=== PATIENT | female | born 1985 | race Caucasian/White ===

== ENCOUNTER 2020-05-14 08:34 | Outpatient (CLI) | payer BC, MEDICAID ==
[~2020-05-14] VITALS: Ht 157.5 cm; Wt 109.5 kg
[~2020-05-14 08:34] MED LIST: AMOXICILLIN/CLA1 TA1 PO; DEPO-PROVER150 MG/M1 IM; DOXYCYCLINE 10100 MG PO; IMPLANON68 MG ID; LORTAB 5/500 501 TAB PO; NO HOME MEDICATIONS; PRENATAL1 TA1 PO; TESSALON PERLE100 MG PO; TYLENOL #2 3001 TAB PO; TYLENOL 500MG500 MG PO; VENTOLIN0.09 MG IH; ZOLOFT 50MG50 MG PO
--- NOTE | 2020-05-14 08:42 | NUR ---
0842-G2L1 21.[address] Good' to unit with complaints of contractions off and on since 0400 every 7-10 min. Denies LOF or VB. Reports good movement. Assisted into gown and on to EFM. FHR difficult to trace due to habitus and gestation. RN frequently adjusting EFM. Abdomen palpates soft. Assessment complete. 0910-IV to right wrist per orders,LR infusing, see EMAR> 0948-Dr. Good updated, see MD notification. Orders to send UA. 1000-Dr. Good on unit in to patient room. Awaiting UA results.
[2020-05-14 09:31] VITALS: BP 104/51; PULSE 76; TEMP 98.6
[2020-05-14 09:49] VITALS: BP 100/54; PULSE 79
[2020-05-14 10:09] LABS: COLLECTION METHOD CLEAN CATCH
[2020-05-14 10:21] LABS: PH 6 (5-8); URINE APPEARANCE Cloudy; URINE BACTERIA Rare /hpf; URINE BILIRUBIN Negative (NEGATIVE); URINE BLOOD Negative (NEGATIVE); URINE COLOR Yellow; URINE GLUCOSE Negative (NEGATIVE); URINE KETONE Negative (NEGATIVE); URINE LEUKOCYTE ESTERASE 3+ (NEGATIVE); URINE NITRATE Negative (NEGATIVE); URINE PROTEIN(semi-quant) Negative (NEGATIVE); URINE RBC None Seen /hpf; URINE UROBILINOGEN Negative (NEGATIVE)
--- NOTE | 2020-05-14 10:30 | NUR ---
1030-Reviewed UA results with MD on unit. Orders to call in Macrobid 100mg BID x7 days PO to [facility] and discharge patient. 1045-Reviewed dishcarge instructions and need to orange picker newly prescribed medication. Denies questions. 1050-Ambulatory off unit.
== END 2020-05-14 10:50 | disposition home or self-care (01) ==
LOC: LDRO 08:34
PROVIDERS: Obstetrics & Gynecology
DX: O62.9 Abnormality of forces of labor, unspecified (principal); Z3A.21 21 weeks gestation of pregnancy; F17.210 Nicotine dependence, cigarettes, uncomplicated
CPT/HCPCS: J7120

== ENCOUNTER 2020-09-18 06:08 | Inpatient (IN) | payer MEDICAID ==
[2020-09-18] VITALS (67 sets, daily range): BP systolic 96–154; BP diastolic 52–96; PULSE 62–140; TEMP 97.3–99
[~2020-09-18] VITALS: Ht 152.5 cm; Wt 121.8 kg
[~2020-09-18 06:08] MED LIST changes: -IBU600 MG PO; -PERCOCET 325 MG1 TA2 PO
--- NOTE | 2020-09-18 06:10 | NUR ---
Presents to labor and delivery for induction of labor. Iv start to right hand. 0630 Pitocin started iv as ordered and per policy. Assessment done, questions offered and answered.
[2020-09-18 07:42] LABS: BASO % 0.3 % (0.0-2.0); EOS # 0.1 (0.0-0.7); EOS % 0.6 % (0-4.0); GRAN # 7.8 (1.4-6.5); HEMATOCRIT 37.3 % (37.0-47.0); HEMOGLOBIN 12.2 g/dl (12.5-16.0); LYMPH # 2.5 (1.2-3.4); LYMPH % 23.3 % (20.0-51.0); MEAN CELL VOLUME 95 fl (80.0-100.0); MEAN CORPUSCULAR HEMOGLOBIN 31 pg (27.0-31.0); MEAN CORPUSCULAR HGB CONC 33 g/dl (33.0-37.0); MONO # 0.3 (0.1-0.6); MONO % 3.1 % (1.7-9.3); PLATELET COUNT 274 K/mm3 (130-400); RED BLOOD COUNT 3.94 M/mm3 (4.10-5.30); REDCELL DISTRIBUTION WIDTH-CV 13.5 % (11.5-14.5)
--- NOTE | 2020-09-18 08:30 | NUR ---
Dr. Good here, vag exam done. Reports dilated to three, eighty percent effaced, minus two. Tolerates well.
--- NOTE | 2020-09-18 10:00 | NUR ---
Request epidural. Anesthesia notified of request.
--- NOTE | 2020-09-18 10:30 | NUR ---
Anesthesia here, visits with patient. 1045 Space obtained by anesthesia Ellyn grantnwisam 1047 Test dose by anesthesia. 1055 Lies down after epidural.
--- NOTE | 2020-09-18 11:30 | NUR ---
Rests in bed, alert. Repositioned to right side. Unable to get baby on that side. Repositioned back to left side.
--- NOTE | 2020-09-18 11:45 | NUR ---
1152 Zofran 4 mg iv given as ordered for nausea.
--- NOTE | 2020-09-18 12:00 | NUR ---
1213 Ephedrine 10 mg iv given for blood pressure of 95/55, then up to 132/68.
--- NOTE | 2020-09-18 12:45 | NUR ---
1245 Rests in bed, alert. Denies any pain or discomfort at this time.1254 Dr. Good here.[address] and arom done. Moderate amount of clear fluid with bloody show noted. Pad changed, repositioned to right side. Peanut ball in between legs.
--- NOTE | 2020-09-18 13:15 | NUR ---
Rests in bed, alert. Vag check done, dilated 4-5. Doctor Florentino notified of check. Also let him know that pitocin increased to 32 caroline units.
--- NOTE | 2020-09-18 14:30 | NUR ---
Patient sleeping on her side. Hard to roller picker contractions at this time.
--- NOTE | 2020-09-18 17:00 | NUR ---
1705 Having emisis, moderate amount of yellow drainage. heart tones down to nintys fortwo minutes. Back up to 160s. Dr. Good here. Vag exam done, reports dilated to eight. Repositioned to right side, then left side. heart rate down again, then back up. Dr. Good in room.
--- NOTE | 2020-09-18 18:00 | NUR ---
Sits up for epidural. See anesthesia notes please. Test dose given 1808.
--- NOTE | 2020-09-18 18:40 | NUR ---
Recurrent variable decelerations down to 80 bpm. Pt repositioned from right lateral to left lateral. SVE /-1
--- NOTE | 2020-09-18 18:48 | NUR ---
1835 - Pt still very uncomfortable and feeling no relief from epidural. Ruben Peterson at bedside and will replace epidural. Pt agreeable to plan. 184 - Pt positioned to sitting on edge of bed. 184 - Test dose by ALMA Saavedra. Pt denies any adverse reactions. 185 - Pt positioned to wedge left. Safety precautions reviewed. Call light within reach. Bed in low and locked position. See Anesthesia record.
--- NOTE | 2020-09-18 19:50 | NUR ---
Dr. Good at bedside to evaluate progess. SVE unchanged from previous exam. Dr. Good discussing plan of care with patient and counseled on section. Pt agreeable to plan of care. called at 1954. Anesthesia notified. Nursery notified. military pay technician notified. 1999 - Incision site clipped and cleaned with hibiclens. 2004 - FHR baseline 150s. Monitors off. Transferred to OR by bed.
[2020-09-19] VITALS (8 sets, daily range): BP systolic 97–128; BP diastolic 52–78; PULSE 60–95; TEMP 97.7–98.3
--- NOTE | 2020-09-19 07:44 | NUR ---
0700 PT RESTING COMFORTABLY IN ROOM HOLDING INFANT. ASSESSMENTS DONE. ICEPACK PLACED OVER ABDOMINAL INCISION. PLAN OF CARE UPDATED. PT HAS NO QUESTIONS AT THIS TIME.
[2020-09-19] MEDS ORDERED: IBU600 MG PO (08:17)
[2020-09-19] MEDS ORDERED: PERCOCET 325 MG1 TA2 PO (08:18)
--- NOTE | 2020-09-19 09:33 | NUR ---
Initial visit; Patient thanked Wire Steward for offering congratulations and God's blessings for the of her son. Wire Steward thanked patient for choosing [facility].
--- NOTE | 2020-09-19 13:28 | NUR ---
Pt up in room independently. Pt took shower and tolerated it well. Pt expressed concern related to transition to caring for two children as a single parent.
[2020-09-20 08:00] VITALS: BP 96/50; PULSE 88; TEMP 98.3
== END 2020-09-20 14:35 | disposition home or self-care (01) | DRG 788 ==
LOC: LDR 06:08 → OB 06:08
PROVIDERS: ADMIT Obstetrics & Gynecology
PROC: 10D00Z1 Extraction of Products of Conception, Low, Open Approach (ICD-10-PCS; principal; 2020-09-18)
DX: O64.8XX0 Obstructed labor due to other malposition and malpresentation, not applicable or unspecified (principal); O99.214 Obesity complicating childbirth; E66.9 Obesity, unspecified; O99.02 Anemia complicating childbirth; D64.9 Anemia, unspecified; O99.334 Smoking (tobacco) complicating childbirth; F17.200 Nicotine dependence, unspecified, uncomplicated; O36.63X0 Maternal care for excessive fetal growth, third trimester, not applicable or unspecified; Z3A.39 39 weeks gestation of pregnancy; Z37.0 Single live birth
CPT/HCPCS: J0690; J1885; J2210; J2400; J2405; J2590; J7120

== ENCOUNTER → 2020-09-18 | Outpatient (CLI) | payer MEDICAID ==
[~2020-09-18] MED LIST changes: +IBU600 MG PO; +PERCOCET 325 MG1 TA2 PO
== END ==
LOC: ZCOL.LAB 09-14 09:01
DX: Z20.822 Contact with and (suspected) exposure to COVID-19 (principal)